=== PATIENT | female | born 1950 | race Asian ===

== ENCOUNTER → 2018-12-10 | Outpatient (CLI) | payer BC ==
[~2018-12-10] MED LIST: GOLYTE PO
--- NOTE | 2018-12-13 18:05 | RADIOLOGY IMAGING REPORT ---
FAC[place] [facility] [place]IENT NAME: MARIBEL RUBALCAVA : [id number] MR: [id number] V: [id number] EXAM DATE: ORDERING PHYSICIAN: MICHAEL VALLES TECHNOLOGIST: Maricel Handley PROCEDURE:BILATERAL DIGITAL SCREENING MAMMOGRAM WITH CAD ASSISTED INTERPRETATION COMPARISON:Prior mammograms 01/09/17. INDICATIONS:SCREENING FINDINGS: The breasts are heterogeneously dense which can obscure small masses. The parenchymal pattern has remained stable allowing for difference in mammographic technique & patient positioning. DIAGNOSTIC CATEGORY 1--NEGATIVE. RECOMMENDATIONS: ROUTINE MAMMOGRAM AND CLINICAL EVALUATION. IMPRESSION: BIRADS 1: Negative. No significant abnormality is seen. Dictated by: Padma Santillan M.D. on 12/10/2018 at 15:33 Transcribed by: CLEO on 12/11/2018 at 12:26 Approved by: Padma Santillan M.D. on 12/13/2018 at 18:04 [facility]
== END ==
LOC: MAMO 03:17
PROVIDERS: ATTEND Family Medicine
DX: Z12.31 Encounter for screening mammogram for malignant neoplasm of breast (principal)
CPT/HCPCS: 77063; 77067